=== PATIENT | male | born 1990 | race Caucasian/White ===

== ENCOUNTER 2024-05-24 06:43 | Emergency (ER) | payer MEDICAID, SELFPAY ==
[2024-05-24 06:43] VITALS: BMI 22.2
[2024-05-24 06:50] VITALS: BP 107/69; PULSE 64; RESP 19; TEMP 36.7; O2SAT 98
--- NOTE | 2024-05-24 06:59 | XR_ITS ---
Examination: Abdomen sonogram, Limited Date and time of exam: May 24, 2024 0727 hrs. Indications: Epigastric pain and vomiting beginning today Technique: Real-time alba scale transabdominal sonographic images of the upper abdomen obtained. Findings: 2 cm gallstone Gallbladder sludge Normal gallbladder wall 0.3 cm Common bile duct enlarged 0.6 cm Pancreatic head 1.9 cm Liver 15.6 cm no liver lesions Normal hepatopedal portal venous flow Patent IVC Impression: Cholelithiasis Enlarged common bile duct 0.6 cm, if biliary colic is a clinical consideration, suggest MRCP follow-up
[2024-05-24] MEDS: METOCLOPRAMIDE INJ 5 MG/ML VIAL 2 ML 10 MG IM (07:16)
[2024-05-24] MEDS: MG HYD/AL HYD/SIME (Maalox Reg) SUSP 30 ML UDC PO (07:18)
[2024-05-24] MEDS: LIDOCAINE VISCOUS 2% 15 ML UDC PO (07:19)
--- NOTE | 2024-05-24 07:32 | PD.EDABDPN ---
ED Abdominal Pain RME/HPI General Chief Complaint: Abdominal Pain Stated complaint: EPIGASTRIC PAIN,N/V Time seen by provider: 05/24/24 06:44 Arrival date/time: 05/24/24 06:43 33-year-old male presents emergency department today complaints of intermittent abdominal pain epigastric ongoing for the last couple of years patient currently on medication for acid reflux patient reports he has not followed up with a GI specialist as of yet. Patient reports no chest pain or shortness of breath no headache dizziness or weakness Limitations: no limitations Related Data Previous Rx's ?Medication ?Instructions ?Recorded meloxicam 7.5 mg tablet 7.5 mg PO QDAY #10 tabs 07/10/23 ibuprofen 600 mg tablet 600 mg PO Q8H PRN pain #14 tabs 03/09/24 metoclopramide HCl 10 mg tablet 10 mg PO Q6H PRN nausea and 05/24/24 (Reglan) vomiting #30 tabs Allergies Allergy/AdvReac Type Severity Reaction Status Date / Time No Known Allergies Allergy Verified 05/24/24 06:45 Review of Systems Review of Systems Systems Reviewed: All systems reviewed, normal except as documented Constitutional Constitutional: Reports system reviewed and no additional complaints, except as documented, Denies fever(s) and Denies headache(s) Eyes Eyes: Reports system reviewed and no additional complaints, except as documented and Denies blurry vision ENT Ears, Nose, Mouth, and Throat: Reports system reviewed and no additional complaints, except as documented, Denies headache(s), Denies nasal congestion and Denies nasal discharge Cardiovascular Cardiovascular: Reports system reviewed and no additional complaints, except as documented, Denies chest pain and Denies dyspnea Respiratory Respiratory: Reports system reviewed and no additional complaints, except as documented, Denies chest congestion, Denies cough and Denies dyspnea Gastrointestinal Gastrointestinal: Reports system reviewed and no additional complaints, except as documented, Reports abdominal pain, Reports nausea and Reports vomiting Integumentary/Breasts Skin/Breast: Reports system reviewed and no additional complaints, except as documented and Denies rash Neurologic Neurologic: Reports system reviewed and no additional complaints, except as documented, Reports as per HPI and Denies headache(s) Past Medical History Past Medical History CARDIAC: Negative Congestive Heart Failure RESPIRATORY: Negative Chronic Obstructive Pulmonary Disease (COPD) GENITOURINARY: Negative Renal Disease ENDOCRINE: Negative Diabetes Mellitus Type 1 or Diabetes Mellitus Type 2 Social History SMOKING STATUS: Current every day smoker ED Exam General Limitations: Present no limitations General appearance: Present alert and in no apparent distress Head Head exam: Present atraumatic Eye Eye exam: Present normal appearance, PERRL and EOMI ENT ENT exam: Present normal exam, normal oropharynx and mucous membranes moist Neck Neck exam: Present normal inspection, full ROM and trachea midline Chest Chest inspection: Present normal inspection and symmetric chest wall rise Respiratory Respiratory exam: Present normal lung sounds bilaterally; Absent respiratory distress Cardiovascular Cardiovascular exam: Present regular rate, normal rhythm and normal heart sounds Abdominal Exam Abdominal exam: Present soft, tenderness and normal bowel sounds; Absent distention, guarding, rebound, rigidity, Flood's sign or tenderness at McBurney's Point Abdominal tenderness: Present epigastrium; Absent RUQ or RLQ Extremities Exam Extremities exam: Present normal inspection and full ROM Back Exam Back exam: Present normal inspection and full ROM Neurological Exam Neurological exam: Present alert, oriented X3 and CN II-XII intact Psychiatric Psychiatric exam: Present normal affect and normal mood Skin Skin exam: Present warm, dry, intact and normal color Course Quality Measures none Orders Category Date Time Status US gall bladder Stat Exams 05/24/24 06:59 Completed CBC Stat Lab 05/24/24 07:13 Completed Comprehensive Metabolic Panel Stat Lab 05/24/24 07:13 Completed Lipase Stat Lab 05/24/24 07:13 Completed Lidocaine 2% Viscous [Xylocaine 2% Viscous] Med 05/24/24 06:59 Discontinued 15 ml PO X1 ONE Metoclopramide Inj [Reglan Inj] Med 05/24/24 06:59 Discontinued 10 mg IM X1 ONE mg Hyd/Al Hyd/Jamie Susp [Maalox Susp] Med 05/24/24 06:59 Discontinued 30 ml PO X1 ONE Vital Signs Vital signs: Vital Signs Temperature 98.0 F 05/24/24 06:50 Pulse Rate 64 05/24/24 06:50 Respiratory Rate 19 05/24/24 06:50 Blood Pressure 107/69 05/24/24 06:50 Pulse Oximetry (%) 98 05/24/24 06:50 Oxygen Delivery Method Room Air 05/24/24 06:50 O2 saturation 98% room air within normal limits Abdominal Pain MDM MDM Narrative MDM Narrative:: 33-year-old male presents emergency department today complaints of intermittent abdominal pain epigastric ongoing for the last couple of years patient currently on medication for acid reflux patient reports he has not followed up with a GI specialist as of yet. Patient reports no chest pain or shortness of breath no headache dizziness or weakness On exam patient well-appearing patient is not appear ill or toxic Patient medicated which did improve his symptom Lab work as well as ultrasound obtained Ultrasound consistent with gallstones and cholelithiasis Liver enzymes are normal I do not suspect patient has CBD stone obstruction Discussed findings of ultrasound and lab work with my attending physician Dr Mccray felt patient did not require MRI at this point could be discharged home. As the patient has no elevation liver enzymes negative Flood sign and patient symptoms have improved patient be discharged home I did explain to the patient that if symptoms persist or worsen he should return immediately for further evaluation Patient discharged home in no distress to follow-up with primary care doctor in the next 24 to 48 hours and request evaluation by general surgeon Patient data External records reviewed:: [facility] previous records Clinical information provided by:: patient Social determinants that could affect healthcare access:: none Patient has the following chronic illnesses:: None How is presenting disease/condition affected by chronic disease/condition?: uneffected by Evaluation data The following diagnostics were reviewed and interpreted by me:: lab results and radiology exam(s) Lab and/or radiology exams considered but not ordered:: Labs radiology obtained Interpretation Summary: Reviewed by me Medications / Prescriptions Medications or Prescriptions considered but not ordered:: Given Medication administrations:: Medication Administration History Discontinued Medications Al Hydrox/Mg Hydrox/Simethicone (Mg Hyd/Al Hyd/Jamie (Maalox Reg) Susp 30 Ml Udc) 30 ml PO X1 ONE Stop: 05/24/24 07:00 Last Admin: 05/24/24 07:18 Dose: 30 ml Documented By: ED Lidocaine HCl (Lidocaine Viscous 2% 15 Ml Udc) 15 ml PO X1 ONE Stop: 05/24/24 07:00 Last Admin: 05/24/24 07:19 Dose: 15 ml Documented By: ED Metoclopramide HCl (Metoclopramide Inj 5 Mg/Ml Vial 2 Ml) 10 mg IM X1 ONE; Protocol Stop: 05/24/24 07:00 Last Admin: 05/24/24 07:16 Dose: 10 mg Documented By: ED Given Consultations Consultation(s) initiated? (list below): No Diagnosis Differential diagnosis abdominal pain: abdominal pain, acute appendicitis, gastroenteritis and pancreatitis Most likely diagnosis given after review of the tests above:: Abdominal pain Admission Indicated Admission indicated?: not indicated Admission Request Was there a request for admission?: No Disposition Plan Disposition Plan: Discharge Discharge Attestation Discharge Attestation: The patient and all family members were given an opportunity to ask questions and understood the discharge instructions. Discharge instructions specifically effects, indications for sooner follow up or return to the emergency department, and the expected course of current diagnosis. Patient condition: Stable Discharge Plan Plan Patient Disposition: HOME (Self Care) Disposition Comment: Stable Prescriptions/Referrals Prescriptions/Med Rec: New metoclopramide HCl [Reglan] 10 mg tablet 10 mg PO Q6H PRN (Reason: nausea and vomiting) Qty: 30 0RF No Action ibuprofen 600 mg tablet 600 mg PO Q8H PRN (Reason: pain) Qty: 14 0RF meloxicam 7.5 mg tablet 7.5 mg PO QDAY Qty: 10 0RF Referrals: No Primary/Family,Physician [Primary Care Provider] - 05/25/24 Problem List Clinical Impression: Cholelithiasis Patient/Caregiver Discharge Instructions Education Materials: Treating Gallstones Additional Instructions: Please follow-up primary care doctor and or get a referral to general surgeon for worsening symptoms return immediately Print Language: Yi Stand Alone Forms: Neha Award Info., Work/School Release, Patient Portal Info Letter THIAGO/PAUL Supervising Physician RENETTA Supervising Physician: Dr Mccray
[2024-05-24 07:55] LABS: Basophils % (Auto) 0 % (0-2.5); Eosinophils # (Auto) 0.2 Thou/mm3 (0.0-0.5); Eosinophils % (Auto) 2 % (0-10); Hematocrit 45.1 % (41.0-53.0); Hemoglobin 15.3 g/dL (13.5-16.0); Immature Granulocytes % (Auto) 0 % (0-0); Immature Granulocytes Auto 0.05 Thou/mm3 (0.00-0.00); Lymphocytes # (Auto) 2.4 Thou/mm3 (1.0-4.8); Lymphocytes % (Auto) 19 % (10-50); Mean Corpuscular HGB Conc 33.9 g/dl (31.0-37.0); Mean Corpuscular Volume 88 fL (80-100); Monocytes # (Auto) 0.6 Thou/mm3 (0.0-0.8); Monocytes % (Auto) 5 % (0-12); Neutrophils # (Auto) 9.6 Thou/mm3 (1.8-7.7); Neutrophils % (Auto) 74 % (37-80); Nucleated Red Blood Cell % 0 /100 WBC (0); Platelet Count 265 Thou/mm3 (140-440); RDW Standard Deviation 43.8 fL (35.1-43.9); White Blood Count 12.9 Thou/mm3 (3.8-10.6)
[2024-05-24 08:21] LABS: Alanine Aminotransferase 16 U/L (10-49); Albumin, Serum 4.7 gm/dL (3.5-5.0); Albumin/Globulin Ratio 1.6 (1.2-2.2); Alkaline Phosphatase 89 U/L (46-116); Anion Gap 7 (7-16); Aspartate Amino Transferase 22 U/L (0-34); BUN/Creatinine Ratio 11 Ratio (12-20); Bilirubin,Total 0.4 mg/dL (0.3-1.2); Blood Urea Nitrogen 11 mg/dL (9-23); Calcium 10.6 mg/dL (8.3-10.6); Calcium (Corrected) 10.6 mg/dL (8.5-10.1); Carbon Dioxide 30.9 mMol/L (20.0-31.0); Chloride 102 mMol/L (98-107); Estimated Creatinine Clearance 105.5 mL/min (>60); Glucose 88 mg/dL (74-106); Lipase 58 U/L (12-53); Osmolality,Calculated 277 (275-295); Potassium 3.7 mMol/L (3.4-5.1); Sodium 140 mMol/L (136-145); Total Protein 7.7 gm/dL (5.7-8.2); eGFR > 60 See Note
[2024-05-24 08:51] VITALS: BP 117/77; PULSE 61; RESP 17; TEMP 36.5; O2SAT 99
== END 2024-05-24 08:53 | disposition home or self-care (01) ==
PROVIDERS: Nurse Practitioner Primary Care; Emergency Provider Emergency Medicine
DX: K80.20 Calculus of gallbladder without cholecystitis without obstruction (principal)
CPT/HCPCS: 36415; 76705; 80053; 80307; 81001; 83690; 85025; 96372; 99284; J2765; J3490; A9270

== ENCOUNTER 2024-06-24 19:56 | Emergency (ER) | payer MEDICAID, SELFPAY ==
[2024-06-24 19:58] VITALS: BMI 22.9
--- NOTE | 2024-06-24 20:39 | PD.EDRME ---
Rapid Medical Screening Exam RME Arrival date/time: 06/24/24 19:56 33-year-old male with past medical history of gallstones and everyday marijuana smoker presents emergency department complaining of diffuse abdominal pain with nausea and vomiting for 3 days. Chief Complaint: Abdominal Pain Time Seen by Provider: 06/24/24 20:24 Vital signs reviewed by provider: Yes
[2024-06-24 20:46] VITALS: BP 119/80; PULSE 66; RESP 20; TEMP 36.7; O2SAT 98
[2024-06-24] MEDS: ONDANSETRON ODT 4 MG TABRAP PO (20:53)
[2024-06-24] MEDS: KETOROLAC INJ 60 MG/2 ML VIAL 30 MG IM (20:53)
[2024-06-24 21:23] LABS: Basophils % (Auto) 0 % (0-2.5); Eosinophils # (Auto) 0.2 Thou/mm3 (0.0-0.5); Eosinophils % (Auto) 2 % (0-10); Hematocrit 43.1 % (41.0-53.0); Hemoglobin 14.5 g/dL (13.5-16.0); Immature Granulocytes % (Auto) 0 % (0-0); Immature Granulocytes Auto 0.02 Thou/mm3 (0.00-0.00); Lymphocytes # (Auto) 3.1 Thou/mm3 (1.0-4.8); Lymphocytes % (Auto) 33 % (10-50); Mean Corpuscular HGB Conc 33.6 g/dl (31.0-37.0); Mean Corpuscular Volume 89 fL (80-100); Monocytes # (Auto) 0.5 Thou/mm3 (0.0-0.8); Monocytes % (Auto) 6 % (0-12); Neutrophils # (Auto) 5.4 Thou/mm3 (1.8-7.7); Neutrophils % (Auto) 59 % (37-80); Nucleated Red Blood Cell % 0 /100 WBC (0); Platelet Count 212 Thou/mm3 (140-440); Red Blood Count 4.83 Miln/mm3 (4.50-5.90); White Blood Count 9.2 Thou/mm3 (3.8-10.6)
[2024-06-24 21:41] LABS: Alanine Aminotransferase 15 U/L (10-49); Albumin, Serum 4.8 gm/dL (3.5-5.0); Albumin/Globulin Ratio 1.7 (1.2-2.2); Alkaline Phosphatase 75 U/L (46-116); Anion Gap 6 (7-16); Aspartate Amino Transferase 22 U/L (0-34); BUN/Creatinine Ratio 12 Ratio (12-20); Bilirubin,Total 0.4 mg/dL (0.3-1.2); Blood Urea Nitrogen 11 mg/dL (9-23); Calcium 9.6 mg/dL (8.3-10.6); Calcium (Corrected) 9.6 mg/dL (8.5-10.1); Carbon Dioxide 29.9 mMol/L (20.0-31.0); Chloride 104 mMol/L (98-107); Creatinine (Component) 0.9 mg/dL (0.6-1.3); Globulin 2.8 gm/dL (2.3-3.5); Glucose 92 mg/dL (74-106); Lipase 62 U/L (12-53); Osmolality,Calculated 278 (275-295); Potassium 3.9 mMol/L (3.4-5.1); Sodium 140 mMol/L (136-145); Total Protein 7.6 gm/dL (5.7-8.2); eGFR > 60 See Note
[2024-06-24 21:56] LABS: Collection Type, Urine Clean Catch; Squamous Epithelial Cell,Urine 0 /hpf (0-5)
[2024-06-24 22:10] LABS: Bilirubin,Urine Negative (Negative); Blood,Urine Negative (Negative); Clarity,Urine Clear (Clear/Hazy); Color,Urine Yellow (Lt Yel-Yel); Culture Indicated,Urine Not Indicated; Glucose, Urine Negative (Negative); Ketones,Urine Trace (Negative); Leukocyte Esterase,Urine Positive (Negative); Nitrite,Urine Negative (Negative); Protein,Urine 1+ (Neg - Trace); RBC,Urine 3 /hpf (0-3); Specific Gravity,Urine 1.034 (1.001-1.035); WBC,Urine 1 /hpf (0-5)
[2024-06-24 22:22] LABS: Amphetamine/Methamp Scrn,U Negative (Negative); Barbiturate Screen,Urine Negative (Negative); Benzodiazepines Screen,Urine Negative (Negative); Benzoylecgonine Screen, Ur Negative (Negative); Fentanyl Screen,Urine Negative (Negative); Opiate Screen,Urine Negative (Negative); THC Screen,Urine Positive (Negative)
--- NOTE | 2024-06-24 23:24 | PC.NURSE ---
pt did not answer when name was called and was not found outside.
--- NOTE | 2024-06-24 23:40 | PC.NURSE ---
pt did not answer when name was called and was not found outside.
== END 2024-06-24 23:45 | disposition left against medical advice (07) ==
PROVIDERS: Emergency Provider Emergency Medicine; PCP Family Medicine
DX: R10.84 Generalized abdominal pain (principal); R11.2 Nausea with vomiting, unspecified
CPT/HCPCS: 36415; 80053; 80307; 81001; 83690; 85025; 96372; 99281; J1885; Q0162

== ENCOUNTER 2024-06-26 06:10 | Emergency (ER) | payer MEDICAID, SELFPAY ==
[2024-06-26 06:10] VITALS: BMI 22.9
[2024-06-26 06:16] VITALS: BP 113/78; PULSE 65; RESP 16; TEMP 36.7; O2SAT 98
--- NOTE | 2024-06-26 06:31 | XR_ITS ---
Examination: Abdomen sonogram, Limited Date and time of exam: June 26, 2024 0722 hours INDICATIONS: Epigastric pain and vomiting beginning yesterday Technique: Real-time alba scale transabdominal sonographic images of the upper abdomen obtained. Findings: Gallbladder sludge 18 mm gallstone Gallbladder wall 0.3 cm no edema Common bile duct 0.4 cm no stones Pancreatic head 2.2 cm Liver 16.4 cm fatty infiltration no focal liver lesions Normal hepatopedal portal venous flow Patent IVC IMPRESSION: Cholelithiasis, negative for cholecystitis Normal common bile duct Mild hepatomegaly fatty liver
--- NOTE | 2024-06-26 06:32 | EDNOTE_ITS ---
ED Abdominal Pain RME/HPI General Chief Complaint: Abdominal Pain Stated complaint: GALLBLADDER PAIN Time seen by provider: 06/26/24 06:32 Arrival date/time: 06/26/24 06:10 33-year-old male with no known medical history presents to the emergency room with a chief complaint of 8 out of 10 epigastric pain that radiates to the right upper quadrant. Patient states he has a history of gallstones and states the pain is very similar. Source: patient Mode of arrival: ambulatory Limitations: no limitations Related Data Previous Rx's ?Medication ?Instructions ?Recorded meloxicam 7.5 mg tablet 7.5 mg PO QDAY #10 tabs 07/10/23 ibuprofen 600 mg tablet 600 mg PO Q8H PRN pain #14 tabs 03/09/24 metoclopramide HCl 10 mg tablet 10 mg PO Q6H PRN nausea and 05/24/24 (Reglan) vomiting #30 tabs Allergies Allergy/AdvReac Type Severity Reaction Status Date / Time No Known Allergies Allergy Verified 06/26/24 06:12 Review of Systems Review of Systems Systems Reviewed: All systems reviewed, normal except as documented Constitutional Constitutional: Reports system reviewed and no additional complaints, except as documented, Denies fatigue, Denies fever(s), Denies headache(s) and Denies weakness Eyes Eyes: Reports system reviewed and no additional complaints, except as documented, Denies blurry vision and Denies change in vision ENT Ears, Nose, Mouth, and Throat: Reports system reviewed and no additional complaints, except as documented, Denies otalgia, Denies headache(s), Denies nasal congestion, Denies throat swelling and Denies vertigo Cardiovascular Cardiovascular: Reports system reviewed and no additional complaints, except as documented, Denies chest pain, Denies dyspnea and Denies dyspnea on exertion Respiratory Respiratory: Reports system reviewed and no additional complaints, except as documented, Denies chest congestion, Denies cough, Denies dyspnea, Denies dyspnea on exertion and Denies wheezing Gastrointestinal Gastrointestinal: Reports system reviewed and no additional complaints, except as documented, Reports abdominal pain, Reports cramping, Reports dyspepsia, Reports nausea and Reports vomiting Genitourinary Genitourinary: Reports system reviewed and no additional complaints, except as documented, Denies dysuria and Denies hematuria Musculoskeletal Musculoskeletal: Reports system reviewed and no additional complaints, except as documented and Denies back pain Integumentary/Breasts Skin/Breast: Reports system reviewed and no additional complaints, except as documented and Denies wounds Neurologic Neurologic: Reports system reviewed and no additional complaints, except as documented, Denies confusion, Denies headache(s), Denies lack of coordination, Denies vertigo and Denies weakness Psychiatric Psychiatric: Reports system reviewed and no additional complaints, except as documented, Denies anxiety, Denies confusion, Denies depression, Denies paranoia, Denies suicidal ideation and Denies tactile hallucinations Endocrine Endocrine: Reports system reviewed and no additional complaints, except as documented and Denies fatigue Hematologic/Lymphatic Hematologic/Lymphatic: Reports system reviewed and no additional complaints, except as documented and Denies lymphadenopathy Allergic/Immunologic Allergic/Immunologic: Reports system reviewed and no additional complaints, except as documented, Denies throat swelling, Denies urticaria and Denies wheezing Past Medical History Past Medical History CARDIAC: Negative Congestive Heart Failure RESPIRATORY: Negative Chronic Obstructive Pulmonary Disease (COPD) GENITOURINARY: Negative Renal Disease ENDOCRINE: Negative Diabetes Mellitus Type 1 or Diabetes Mellitus Type 2 Social History SMOKING STATUS: Current every day smoker ED Exam General Limitations: Present no limitations General appearance: Present alert and in no apparent distress Head Head exam: Present atraumatic Eye Eye exam: Present normal appearance, PERRL and EOMI ENT ENT exam: Present normal exam, normal oropharynx and mucous membranes moist Neck Neck exam: Present normal inspection, full ROM and trachea midline Chest Chest inspection: Present normal inspection and symmetric chest wall rise Respiratory Respiratory exam: Present normal lung sounds bilaterally Cardiovascular Cardiovascular exam: Present regular rate, normal rhythm and normal heart sounds Abdominal Exam Abdominal exam: Present soft, tenderness, normal bowel sounds and Flood's sign; Absent Rovsing's sign or tenderness at McBurney's Point Abdominal tenderness: Present RUQ, epigastrium and moderate Extremities Exam Extremities exam: Present normal inspection and full ROM Back Exam Back exam: Present normal inspection and full ROM Neurological Exam Neurological exam: Present alert, oriented X3 and CN II-XII intact Psychiatric Psychiatric exam: Present normal affect and normal mood Skin Skin exam: Present warm, dry, intact and normal color Course Quality Measures none Orders Category Date Time Status US gall bladder Stat Exams 06/26/24 06:31 Completed CBC Stat Lab 06/26/24 07:38 Completed CMP [Comprehensive Metabolic Panel] Stat Lab 06/26/24 07:38 Completed Lipase Stat Lab 06/26/24 07:38 Completed UA [Urinalysis] Stat Lab 06/26/24 08:20 Completed Urine Culture Stat Lab 06/26/24 08:20 Received HYDROcodone*/APAP 5/325 [[place] 5/325] Med 06/26/24 06:31 Discontinued 1 tab PO X1 ONE Ondansetron Odt [Zofran Odt] Med 06/26/24 06:31 Discontinued 4 mg PO X1 ONE Ondansetron Odt [Zofran Odt] Med 06/26/24 06:37 Discontinued 4 mg PO X1 ONE Vital Signs Vital signs: Vital Signs Temperature 98.0 F 06/26/24 06:16 Pulse Rate 65 06/26/24 06:16 Respiratory Rate 16 06/26/24 06:16 Blood Pressure 113/78 06/26/24 06:16 Pulse Oximetry (%) 98 06/26/24 06:16 Oxygen Delivery Method Room Air 06/26/24 06:16 O2 saturation 98% within normal limits Abdominal Pain MDM MDM Narrative MDM Narrative:: 33-year-old male with no known medical history presents to the emergency room with a chief complaint of 8 out of 10 epigastric pain that radiates to the right upper quadrant. Patient states he has a history of gallstones and states the pain is very similar. Clinically the patient appears nontoxic and in no apparent distress. Physical examination shows 8 out of 10 epigastric pain that radiates to the right upper quadrant. Patient has a negative Flood sign but is very tender in the epigastric area. Ultrasound of the gallbladder was completed and shows cholelithiasis but is negative for cholecystitis. Patient signed out AGAINST MEDICAL ADVICE prior to disposition the patient was not seen and reevaluated Patient data External records reviewed:: [facility] previous records Clinical information provided by:: patient Social determinants that could affect healthcare access:: none Patient has the following chronic illnesses:: No chronic illness How is presenting disease/condition affected by chronic disease/condition?: no chronic disease Evaluation data The following diagnostics were reviewed and interpreted by me:: lab results and radiology exam(s) Lab and/or radiology exams considered but not ordered:: Labs and radiology exams considered and ordered Interpretation Summary: Ultrasound gallbladder- Medications / Prescriptions Medications or Prescriptions considered but not ordered:: Medication given Medication administrations:: Medication Administration History Discontinued Medications Hydrocodone Bitart/Acetaminophen (Hydrocodone/Apap 5/325 Tablet) 1 tab PO X1 ONE Stop: 06/26/24 06:32 Last Admin: 06/26/24 06:40 Dose: 1 tab Documented By: ARTURO Ondansetron HCl (Ondansetron Odt 4 Mg Tabrap) 4 mg PO X1 ONE; Protocol Stop: 06/26/24 06:32 Last Admin: 06/26/24 06:38 Dose: Not Given Documented By: ARTURO Non-Admin Reason: Discontinued Ondansetron HCl (Ondansetron Odt 4 Mg Tabrap) 4 mg PO X1 ONE; Protocol Stop: 06/26/24 06:38 Last Admin: 06/26/24 06:40 Dose: 4 mg Documented By: ARTURO Medication given Consultations Consultation(s) initiated? (list below): No Diagnosis Differential diagnosis abdominal pain: abdominal pain, constipation, gastroenteritis and other (Cholecystitis/cholecystectomy) Most likely diagnosis given after review of the tests above:: Cholelithiasis Admission Indicated Admission indicated?: not indicated Admission Request Was there a request for admission?: No Disposition Plan Disposition Plan: Discharge Discharge Attestation Discharge Attestation: The patient and all family members were given an opportunity to ask questions and understood the discharge instructions. Discharge instructions specifically effects, indications for sooner follow up or return to the emergency department, and the expected course of current diagnosis. Patient condition: Stable Discharge Plan Plan Patient Disposition: Left Against Medical Advice Disposition Comment: Stable Prescriptions/Referrals Prescriptions/Med Rec: No Action ibuprofen 600 mg tablet 600 mg PO Q8H PRN (Reason: pain) Qty: 14 0RF meloxicam 7.5 mg tablet 7.5 mg PO QDAY Qty: 10 0RF metoclopramide HCl [Reglan] 10 mg tablet 10 mg PO Q6H PRN (Reason: nausea and vomiting) Qty: 30 0RF Referrals: Flor Wise TECHNICAL SUPPORT PROFESSIONAL [Primary Care Provider] - In 1 week Problem List Clinical Impression: Cholelithiasis Patient/Caregiver Discharge Instructions Education Materials: ED Gallstones with Biliary Colic Print Language: Cymro Stand Alone Forms: Neha Award Info., Patient Portal Info Letter
[2024-06-26] MEDS: HYDROcodone/APAP 5/325 TABLET 1 TAB PO (06:40)
[2024-06-26] MEDS: ONDANSETRON ODT 4 MG TABRAP PO (06:40)
[2024-06-26 08:49] LABS: Collection Type, Urine Clean Catch
[2024-06-26 09:49] LABS: Bacteria,Urine Rare; Bilirubin,Urine Negative (Negative); Blood,Urine Negative (Negative); Clarity,Urine Clear (Clear/Hazy); Color,Urine Lt-Yellow (Lt Yel-Yel); Glucose, Urine Negative (Negative); Ketones,Urine Negative (Negative); Leukocyte Esterase,Urine Negative (Negative); Nitrite,Urine Negative (Negative); PH,Urine 6.5 (5.0-7.0); Protein,Urine Trace (Neg - Trace); RBC,Urine 2 /hpf (0-3); Specific Gravity,Urine 1.025 (1.001-1.035); Squamous Epithelial Cell,Urine < 1 /hpf (0-5); Urobilinogen,Urine Negative mg/dL (0.0-1.0); WBC,Urine 1 /hpf (0-5)
--- NOTE | 2024-06-26 09:49 | PC.NURSE ---
Patient signed out AMA states i have to take my son to a Dr's appointment at 1030 , patient made aware of risks involved with signing out AMA including possible , patient verbalizes understanding, AMA form signed and placed on chart.
[2024-06-26 10:04] LABS: Basophils % (Auto) 0 % (0-2.5); Eosinophils # (Auto) 0.1 Thou/mm3 (0.0-0.5); Eosinophils % (Auto) 1 % (0-10); Hematocrit 42.8 % (41.0-53.0); Hemoglobin 14.4 g/dL (13.5-16.0); Immature Granulocytes % (Auto) 0 % (0-0); Immature Granulocytes Auto 0.03 Thou/mm3 (0.00-0.00); Lymphocytes % (Auto) 17 % (10-50); Mean Corpuscular HGB Conc 33.6 g/dl (31.0-37.0); Mean Corpuscular Volume 89 fL (80-100); Monocytes # (Auto) 0.6 Thou/mm3 (0.0-0.8); Monocytes % (Auto) 5 % (0-12); Neutrophils # (Auto) 9.1 Thou/mm3 (1.8-7.7); Neutrophils % (Auto) 77 % (37-80); Nucleated Red Blood Cell % 0 /100 WBC (0); Platelet Count 225 Thou/mm3 (140-440); RDW Standard Deviation 44.1 fL (35.1-43.9); White Blood Count 11.8 Thou/mm3 (3.8-10.6)
[2024-06-26 10:24] LABS: Alanine Aminotransferase 14 U/L (10-49); Alkaline Phosphatase 74 U/L (46-116); Anion Gap 6 (7-16); Aspartate Amino Transferase 22 U/L (0-34); BUN/Creatinine Ratio 13 Ratio (12-20); Bilirubin,Total 0.4 mg/dL (0.3-1.2); Blood Urea Nitrogen 12 mg/dL (9-23); Calcium 9.8 mg/dL (8.3-10.6); Calcium (Corrected) 9.8 mg/dL (8.5-10.1); Carbon Dioxide 30.1 mMol/L (20.0-31.0); Chloride 105 mMol/L (98-107); Creatinine (Component) 0.9 mg/dL (0.6-1.3); Globulin 2.5 gm/dL (2.3-3.5); Glucose 91 mg/dL (74-106); Lipase 44 U/L (12-53); Osmolality,Calculated 280 (275-295); Potassium 3.7 mMol/L (3.4-5.1); Sodium 141 mMol/L (136-145); Total Protein 7.5 gm/dL (5.7-8.2); eGFR > 60 See Note
== END 2024-06-26 09:49 | disposition left against medical advice (07) ==
PROVIDERS: Nurse Practitioner Family; Emergency Provider Emergency Medicine; PCP Nurse Practitioner Women's Health
DX: K80.70 Calculus of gallbladder and bile duct without cholecystitis without obstruction (principal); Z53.29 Procedure and treatment not carried out because of patient's decision for other reasons
CPT/HCPCS: 36415; 76705; 80053; 81001; 83690; 85025; 87077; 87086; 87186; 99284; Q0162; A9270

== ENCOUNTER 2024-07-07 00:42 | Emergency (ER) | payer MEDICAID, SELFPAY ==
[2024-07-07 00:43] VITALS: BMI 22.9
--- NOTE | 2024-07-07 00:54 | XR_ITS ---
Examination: Abdomen sonogram, Limited Date and time of exam: July 07, 2024 at 0257 hrs. Indications: Onset right upper abdominal pain beginning 3 days ago Technique: Real-time alba scale transabdominal sonographic images of the upper abdomen obtained. Findings: Findings most consistent with cholelithiasis, with gallbladder sludge Gallbladder wall 0.2 cm Common bile duct 0.3 cm Pancreatic head 1.8 cm Liver 15.0 cm smooth contour no focal liver lesions Normal hepatopedal portal venous flow Patent IVC Impression: Cholelithiasis, negative for cholecystitis
[2024-07-07 01:01] VITALS: BP 108/66; PULSE 104; RESP 20; TEMP 36.7; O2SAT 100
[2024-07-07] MEDS: HYDROcodone/APAP 5/325 TABLET 1 TAB PO (01:06)
[2024-07-07] MEDS: ONDANSETRON ODT 4 MG TABRAP PO (01:06)
[2024-07-07 01:32] LABS: Eosinophils # (Auto) 0.1 Thou/mm3 (0.0-0.5); Eosinophils % (Auto) 1 % (0-10); Immature Granulocytes % (Auto) 0 % (0-0); Immature Granulocytes Auto 0.02 Thou/mm3 (0.00-0.00); Mean Corpuscular HGB Conc 34.3 g/dl (31.0-37.0); Nucleated Red Blood Cell % 0 /100 WBC (0)
[2024-07-07 01:36] LABS: Basophils # (Auto) 0.1 Thou/mm3 (0.0-0.2); Basophils % (Auto) 1 % (0-2.5); Hematocrit 43.5 % (41.0-53.0); Hemoglobin 14.9 g/dL (13.5-16.0); Lymphocytes # (Auto) 3.2 Thou/mm3 (1.0-4.8); Lymphocytes % (Auto) 31 % (10-50); Mean Corpuscular Hemoglobin 29.8 pg (25.0-35.0); Mean Corpuscular Volume 87 fL (80-100); Monocytes # (Auto) 0.5 Thou/mm3 (0.0-0.8); Monocytes % (Auto) 5 % (0-12); Neutrophils # (Auto) 6.2 Thou/mm3 (1.8-7.7); Neutrophils % (Auto) 61 % (37-80); Platelet Count 252 Thou/mm3 (140-440); White Blood Count 10.1 Thou/mm3 (3.8-10.6)
--- NOTE | 2024-07-07 01:39 | EDRME_ITS ---
Rapid Medical Screening Exam [facility] Arrival date/time: 07/07/24 00:42 33-year-old male with no known medical history presents to the emergency room with a chief complaint of 9 out of 10 right upper quadrant abdominal pain that radiates to the epigastric area, nausea, vomiting x 3 hours. Patient states he has been told he has multiple gallstones and has an appointment with the specialist early next month. I have greeted and performed a focused initial assessment of this patient. A comprehensive ED assessment and evaluation of the patient, analysis of all test results, and completion of the medical decision making process will be conducted by additional ED providers. Chief Complaint: Abdominal Pain Vital signs: Vital Signs Temperature 98.0 F 07/07/24 01:01 Pulse Rate 104 H 07/07/24 01:01 Respiratory Rate 20 07/07/24 01:01 Blood Pressure 108/66 07/07/24 01:01 Pulse Oximetry (%) 100 07/07/24 01:01 Oxygen Delivery Method Room Air 07/07/24 01:01 Vital signs reviewed by provider: Yes
[2024-07-07 01:48] LABS: Alanine Aminotransferase 17 U/L (10-49); Albumin/Globulin Ratio 1.9 (1.2-2.2); Alkaline Phosphatase 80 U/L (46-116); Anion Gap 8 (7-16); Aspartate Amino Transferase 20 U/L (0-34); BUN/Creatinine Ratio 14 Ratio (12-20); Bilirubin,Total 0.4 mg/dL (0.3-1.2); Blood Urea Nitrogen 13 mg/dL (9-23); Calcium 10.2 mg/dL (8.3-10.6); Calcium (Corrected) 10.2 mg/dL (8.5-10.1); Chloride 103 mMol/L (98-107); Creatinine (Component) 0.9 mg/dL (0.6-1.3); Globulin 2.7 gm/dL (2.3-3.5); Glucose 91 mg/dL (74-106); Lipase 101 U/L (12-53); Osmolality,Calculated 283 (275-295); Potassium 4.1 mMol/L (3.4-5.1); Sodium 142 mMol/L (136-145); Total Protein 7.7 gm/dL (5.7-8.2); eGFR > 60 See Note
[2024-07-07 03:50] LABS: Collection Type, Urine Clean Catch
[2024-07-07 04:01] LABS: Bacteria,Urine Rare; Bilirubin,Urine Negative (Negative); Blood,Urine Negative (Negative); Clarity,Urine Turbid (Clear/Hazy); Color,Urine Yellow (Lt Yel-Yel); Glucose, Urine Negative (Negative); Ketones,Urine Trace (Negative); Leukocyte Esterase,Urine Negative (Negative); Nitrite,Urine Negative (Negative); PH,Urine 7.5 (5.0-7.0); Protein,Urine 1+ (Neg - Trace); RBC,Urine 4 /hpf (0-3); Specific Gravity,Urine 1.037 (1.001-1.035); Squamous Epithelial Cell,Urine 1 /hpf (0-5); WBC,Urine 2 /hpf (0-5)
[2024-07-07 05:02] VITALS: BP 101/75; PULSE 52; RESP 14; TEMP 36.4; O2SAT 100
--- NOTE | 2024-07-07 05:02 | PC.NURSE ---
First contact with pt in Room 8, pt changed into gown, connected to bedside hospital monitor, whiteboard updated, call light within reach.
--- NOTE | 2024-07-07 05:05 | PRELIM_ITS ---
Right upper quadrant abdominal ultrasound. July 07, 2024 at 0257 hours Clinical history: Right upp er quadrant pain. Comparison: None.Findings:The liver measures 15 cm and demonstrates increased echog enicity. No intrahepatic biliary ductal dilatation. The main portal vein is patent and demonstrates h epatopetal flow. There is a 2 cm large calculus within the gallbladder. Echogenic material is identif ied in the gallbladder, which may represent sludge ball. No wall thickening or pericholecystic fluid is demonstrated. Sonographic Flood sign is positive as per the technologist's note. The common bile duct is normal in caliber at 3 mm. The pancreas is unremarkable to the extent visualized. The inferio r vena cava is unremarkable to the extent visualized. Impression:Cholelithiasis with positive Flood sign. While additional sonographic evidence of gallbladder wall thickening or pericholecystic fluid i s not demonstrated at this time. In the appropriate clinical setting, acute cholecystitis cannot be e ntirely excluded. Suggest follow-up with HIDA scan, if clinically indicated. Fatty infiltration of the liver. Report Electronically Signed By: Jessica Joseph 07/07/2024 5:05:10 AM [EST]
[2024-07-07 06:30] VITALS: BP 99/63; PULSE 53; RESP 14; TEMP 36.8; O2SAT 99
--- NOTE | 2024-07-07 06:42 | EDNOTE_ITS ---
<Statement entered by Sherita Gil MD - 07/07/24 09:15> As co-signing physician, I was present and available for consult prn. I concur with the plan and care as documented by the midlevel provider. ED Abdominal Pain RME/HPI General Chief Complaint: Abdominal Pain Stated complaint: RIGHT UPPER ABDOMINAL PAIN, HX GALLSTONES Time seen by provider: 07/07/24 06:41 Arrival date/time: 07/07/24 00:42 33-year-old male presents emergency department today complaints of intermittent abdominal pain epigastric ongoing for the last couple of years patient currently on medication for acid reflux patient reports he has followed up with GI specialist since last visit reports he has a follow-up appointment on the of next month. Patient reports no chest pain or shortness of breath no headache dizziness or weakness Limitations: no limitations RME / HPI RME / HPI narrative: 07/07/24 00:42 33-year-old male with no known medical history presents to the emergency room with a chief complaint of 9 out of 10 right upper quadrant abdominal pain that radiates to the epigastric area, nausea, vomiting x 3 hours. Patient states he has been told he has multiple gallstones and has an appointment with the specialist early next month. I have greeted and performed a focused initial assessment of this patient. A comprehensive ED assessment and evaluation of the patient, analysis of all test results, and completion of the medical decision making process will be conducted by additional ED providers. Related Data Previous Rx's ?Medication ?Instructions ?Recorded meloxicam 7.5 mg tablet 7.5 mg PO QDAY #10 tabs 07/10/23 ibuprofen 600 mg tablet 600 mg PO Q8H PRN pain #14 tabs 03/09/24 metoclopramide HCl 10 mg tablet 10 mg PO Q6H PRN nausea and 05/24/24 (Reglan) vomiting #30 tabs hydrocodone 5 mg-acetaminophen 325 1 tab PO BID PRN pain #10 tabs 07/07/24 mg tablet ibuprofen 600 mg tablet 600 mg PO Q6H #30 tabs 07/07/24 ondansetron 4 mg disintegrating 4 mg PO Q8H PRN nausea and 07/07/24 tablet vomiting #10 tabs Allergies Allergy/AdvReac Type Severity Reaction Status Date / Time No Known Allergies Allergy Verified 06/26/24 06:12 Review of Systems Review of Systems Systems Reviewed: All systems reviewed, normal except as documented Constitutional Constitutional: Reports system reviewed and no additional complaints, except as documented, Denies fever(s) and Denies headache(s) Eyes Eyes: Reports system reviewed and no additional complaints, except as documented and Denies blurry vision ENT Ears, Nose, Mouth, and Throat: Reports system reviewed and no additional complaints, except as documented, Denies headache(s), Denies nasal congestion and Denies nasal discharge Cardiovascular Cardiovascular: Reports system reviewed and no additional complaints, except as documented, Denies chest pain and Denies dyspnea Respiratory Respiratory: Reports system reviewed and no additional complaints, except as documented, Denies chest congestion, Denies cough and Denies dyspnea Gastrointestinal Gastrointestinal: Reports system reviewed and no additional complaints, except as documented, Reports abdominal pain, Reports nausea and Reports vomiting Integumentary/Breasts Skin/Breast: Reports system reviewed and no additional complaints, except as d ocumented and Denies rash Neurologic Neurologic: Reports system reviewed and no additional complaints, except as documented, Reports as per HPI and Denies headache(s) Past Medical History Past Medical History NEUROLOGIC: Negative Neurological Disorders CARDIAC: Negative Cardiac Disorders ED Exam General Limitations: Present no limitations General appearance: Present alert and in no apparent distress Head Head exam: Present atraumatic, normocephalic and normal inspection Eye Eye exam: Present normal appearance, PERRL and EOMI; Absent conjunctival injection ENT ENT exam: Present normal exam, normal oropharynx and mucous membranes moist Neck Neck exam: Present normal inspection, full ROM and trachea midline Chest Chest inspection: Present normal inspection and symmetric chest wall rise Respiratory Respiratory exam: Present normal lung sounds bilaterally; Absent respiratory distress Cardiovascular Cardiovascular exam: Present regular rate, normal rhythm and normal heart sounds Abdominal Exam Abdominal exam: Present soft and normal bowel sounds; Absent distention, tenderness, guarding, rebound or rigidity Extremities Exam Extremities exam: Present normal inspection and full ROM Back Exam Back exam: Present normal inspection and full ROM Neurological Exam Neurological exam: Present alert, oriented X3 and CN II-XII intact Psychiatric Psychiatric exam: Present normal affect and normal mood Skin Skin exam: Present warm, dry, intact and normal color Course Quality Measures none Orders Category Date Time Status US gall bladder Stat Exams 07/07/24 00:54 Taken CBC Stat Lab 07/07/24 01:16 Completed CMP [Comprehensive Metabolic Panel] Stat Lab 07/07/24 01:16 Completed Lipase Stat Lab 07/07/24 01:16 Completed UA [Urinalysis] Stat Lab 07/07/24 03:44 Completed Urine Culture Stat Lab 07/07/24 03:44 Ordered HYDROcodone*/APAP 5/325 [[place] 5/325] Med 07/07/24 00:54 Discontinued 1 tab PO X1 ONE Ondansetron Odt [Zofran Odt] Med 07/07/24 00:54 Discontinued 4 mg PO X1 ONE Vital Signs Vital signs: Vital Signs Temperature 98.0 F 07/07/24 01:01 Pulse Rate 104 H 07/07/24 01:01 Respiratory Rate 20 07/07/24 01:01 Blood Pressure 108/66 07/07/24 01:01 Pulse Oximetry (%) 100 07/07/24 01:01 Oxygen Delivery Method Room Air 07/07/24 01:01 O2 saturation 100% room air within normal limits Abdominal Pain MDM MDM Narrative MDM Narrative:: 33-year-old male presents emergency department today complaints of intermittent abdominal pain epigastric ongoing for the last couple of years patient currently on medication for acid reflux patient reports he has followed up with GI spe cialist since last visit reports he has a follow-up appointment on the 12th of next month. Patient reports no chest pain or shortness of breath no headache dizziness or weakness On exam patient well-appearing patient is not appear ill or toxic Patient medicated which did improve his symptom Lab work as well as ultrasound obtained Ultrasound consistent with gallstones and cholelithiasis Liver enzymes are normal I do not suspect patient has CBD stone obstruction As the patient has no elevation liver enzymes negative Flood sign and patient symptoms have improved patient be discharged home I did explain to the patient that if symptoms persist or worsen he should return immediately for further evaluation cholelithiasis Patient discharged home in no distress to follow-up with primary care doctor in the next 24 to 48 hours and request evaluation by general surgeon Patient data External records reviewed:: [facility] previous records Clinical information provided by:: patient Social determinants that could affect healthcare access:: none Patient has the following chronic illnesses:: None How is presenting disease/condition affected by chronic disease/condition?: no chronic disease Evaluation data The following diagnostics were reviewed and interpreted by me:: lab results and radiology exam(s) Lab and/or radiology exams considered but not ordered:: Labs radiology obtain Interpretation Summary: Reviewed by me Medications / Prescriptions Medications or Prescriptions considered but not ordered:: Given Medication administrations:: Medication Administration History Discontinued Medications Hydrocodone Bitart/Acetaminophen (Hydrocodone/Apap 5/325 Tablet) 1 tab PO X1 ONE Stop: 07/07/24 00:55 Last Admin: 07/07/24 01:06 Dose: 1 tab Documented By: STEPHEN Ondansetron HCl (Ondansetron Odt 4 Mg Tabrap) 4 mg PO X1 ONE; Protocol Stop: 07/07/24 00:55 Last Admin: 07/07/24 01:06 Dose: 4 mg Documented By: STEPHEN Given Consultations Consultation(s) initiated? (list below): No Diagnosis Differential diagnosis abdominal pain: abdominal pain, acute appendicitis, gastroenteritis and pancreatitis Most likely diagnosis given after review of the tests above:: Gallstones Admission Indicated Admission indicated?: not indicated Admission Request Was there a request for admission?: No Disposition Plan Disposition Plan: Discharge Discharge Attestation Discharge Attestation: The patient and all family members were given an opportunity to ask questions and understood the discharge instructions. Discharge instructions specifically effects, indications for sooner follow up or return to the emergency department, and the expected course of current diagnosis. Patient condition: Stable Discharge Plan Plan Patient Disposition: HOME (Self Care) Disposition Comment: Stable Prescriptions/Referrals Prescriptions/Med Rec: New hydrocodone-acetaminophen 5-325 mg tablet 1 tab PO BID MDD 10 PRN (Reason: pain) Qty: 10 0RF ibuprofen 600 mg tablet 600 mg PO Q6H Qty: 30 0RF ondansetron 4 mg tablet,disintegrating 4 mg PO Q8H PRN (Reason: nausea and vomiting) Qty: 10 0RF No Action ibuprofen 600 mg tablet 600 mg PO Q8H PRN (Reason: pain) Qty: 14 0RF meloxicam 7.5 mg tablet 7.5 mg PO QDAY Qty: 10 0RF metoclopramide HCl [Reglan] 10 mg tablet 10 mg PO Q6H PRN (Reason: nausea and vomiting) Qty: 30 0RF Referrals: No Primary/Family,Physician [Primary Care Provider] - In 1 week Problem List Clinical Impression: Cholelithiasis Patient/Caregiver Discharge Instructions Education Materials: Treating Gallstones Additional Instructions: Please follow up with your primary care doctor in the next 24-48hrs for any worsening symptoms return here immediately Print Language: Dominican Stand Alone Forms: Neha Award Info., Patient Portal Info Letter PA/DEVELOPMENT TECHNICIAN Supervising Physician PA/DEVELOPMENT TECHNICIAN Supervising Physician: Dr. GIL
[2024-07-07 06:47] VITALS: BP 99/63; PULSE 53; RESP 14; TEMP 36.8; O2SAT 99
== END 2024-07-07 06:47 | disposition home or self-care (01) ==
PROVIDERS: Nurse Practitioner Family; Emergency Provider Emergency Medicine
DX: K80.20 Calculus of gallbladder without cholecystitis without obstruction (principal); K21.9 Gastro-esophageal reflux disease without esophagitis
CPT/HCPCS: 36415; 76705; 80053; 81001; 83690; 85025; 87077; 87086; 87186; 99284; Q0162; A9270

== ENCOUNTER 2024-07-18 02:01 | Emergency (ER) | payer MEDICAID, SELFPAY ==
[2024-07-18 02:02] VITALS: BMI 22.2
[2024-07-18 02:12] VITALS: BP 108/71; PULSE 62; RESP 19; TEMP 36.4; O2SAT 98
--- NOTE | 2024-07-18 02:23 | EDNOTE_ITS ---
ED Abdominal Pain RME/HPI General Chief Complaint: Abdominal Pain Stated complaint: RIGHT UPPER ABDOMINAL PAIN Time seen by provider: 07/18/24 02:18 Arrival date/time: 07/18/24 02:01 33M with history of anxiety and gallstones presents to ED with 2 months of on/off RUQ pain. Patient has been here multiple times for this with US showing gallstones, but no cholecystitis. Patient has specialist appointment next month. Patient just wants meds and declines diagnostic work. Patient hasn't taken any meds because he recently lost his job and can't afford them. Limitations: no limitations Related Data Previous Rx's ?Medication ?Instructions ?Recorded meloxicam 7.5 mg tablet 7.5 mg PO QDAY #10 tabs 06/21 07/13 ibuprofen 600 mg tablet 600 mg PO Q8H PRN pain #14 t abs 03/09/24 metoclopramide HCl 10 mg tablet 10 mg PO Q6H PRN nause a and 05/24/24 (Reglan) vomiting #30 tabs hydrocodone 5 mg-acetaminophen 325 1 tab PO BID PRN pa in #10 tabs 07/07/24 mg tablet ibuprofen 600 mg tablet 600 mg PO Q6H #30 tabs 07/07 ondansetron 4 mg disintegrating 4 mg PO Q8H PRN nausea and 07/07/24 tablet vomiting #10 tabs naproxen 500 mg tablet 500 mg PO BID PRN pain #30 t abs 07/18/24 Allergies Allergy/AdvReac Type Severity Reaction Status Date / Time No Known Allergies Allergy Verified 06/26/24 06:12 Review of Systems Review of Systems Systems Reviewed: All systems reviewed, normal except as documented Constitutional Constitutional: Reports system reviewed and no additional complaints, except as documented, Denies fever(s) and Denies headache(s) ENT Ears, Nose, Mouth, and Throat: Denies disequilibrium and Denies headache(s) Cardiovascular Cardiovascular: Reports system reviewed and no additional complaints, except as documented, Denies chest pain and Denies dyspnea Respiratory Respiratory: Reports system reviewed and no additional complaints, except as documented, Denies cough and Denies dyspnea Gastrointestinal Gastrointestinal: Reports system reviewed and no additional complaints, except as documented, Reports as per HPI, Reports abdominal pain, Denies nausea and Denies vomiting Neurologic Neurologic: Reports system reviewed and no additional complaints, except as documented, Denies confusion, Denies disequilibrium and Denies headache(s) Psychiatric Psychiatric: Denies confusion Past Medical History Past Medical History NEUROLOGIC: Negative Neurological Disorders CARDIAC: Negative Cardiac Disorders or Congestive Heart Failure RESPIRATORY: Negative Chronic Obstructive Pulmonary Disease (COPD) GENITOURINARY: Negative Renal Disease ENDOCRINE: Negative Diabetes Mellitus Type 1 or Diabetes Mellitus Type 2 Social History SMOKING STATUS: Current every day smoker ED Exam General Limitations: Present no limitations General appearance: Present alert and in no apparent distress Head Head exam: Present atraumatic Eye Eye exam: Present normal appearance, PERRL and EOMI ENT ENT exam: Present normal exam, normal oropharynx and mucous membranes moist Neck Neck exam: Present normal inspection, full ROM and trachea midline Chest Chest inspection: Present normal inspection and symmetric chest wall rise Respiratory Respiratory exam: Present normal lung sounds bilaterally Cardiovascular Cardiovascular exam: Present regular rate, normal rhythm and normal heart sounds Abdominal Exam Abdominal exam: Present soft and normal bowel sounds Abdominal tenderness: Present RUQ and mild Extremities Exam Extremities exam: Present normal inspection and full ROM Back Exam Back exam: Present normal inspection and full ROM Neurological Exam Neurological exam: Present alert, oriented X3 and CN II-XII intact Psychiatric Psychiatric exam: Present normal affect and normal mood Skin Skin exam: Present warm, dry, intact and normal color Course Quality Measures none Orders Category Date Time Status Ketorolac Inj [Toradol Inj] Med 07/18/24 02:19 Discontinued 60 mg IM X1 ONE Vital Signs Vital signs: Vital Signs Temperature 97.5 F 07/18/24 02:12 Pulse Rate 62 07/18/24 02:12 Respiratory Rate 19 07/18/24 02:12 Blood Pressure 108/71 07/18/24 02:12 Pulse Oximetry (%) 98 07/18/24 02:12 Oxygen Delivery Method Room Air 07/18/24 02:12 O2 at 98% on RA and WNLs Abdominal Pain MDM MDM Narrative MDM Narrative:: 33M with history of anxiety and gallstones presents to ED with 2 months of on/off RUQ pain. Patient has been here multiple times for this with US showing gallstones, but no cholecystitis. Patient has specialist appointment next month. Patient just wants meds and declines diagnostic work. Patient hasn't taken any meds because he recently lost his job and can't afford them. Physical exam reveals mild RUQ tenderness. Patient is afebrile, calm, and alert. Meds given. Patient data External records reviewed:: [facility] previous records Clinical information provided by:: patient Social determinants that could affect healthcare access:: mental health Patient has the following chronic illnesses:: anxiety How is presenting disease/condition affected by chronic disease/condition?: exacerbated by Evaluation data The following diagnostics were reviewed and interpreted by me:: other (specify) (none) Lab and/or radiology exams considered but not ordered:: not ordered Interpretation Summary: n/a Medications / Prescriptions Medications or Prescriptions considered but not ordered:: ordered Medication administrations:: Medication Administration History Discontinued Medications Ketorolac Tromethamine (Ketorolac Inj 60 Mg/2 Ml Vial) 60 mg IM X1 ONE Stop: 07/18/24 02:20 above Consultations Consultation(s) initiated? (list below): No Diagnosis Differential diagnosis abdominal pain: abdominal pain, acute appendicitis, calculus of kidney, constipation, diverticulitis, endometriosis, gastroenteritis, pancreatitis, small bowel obstruction and other (biliary colic) Most likely diagnosis given after review of the tests above:: biliary colic Admission Indicated Admission indicated?: not indicated Admission Request Was there a request for admission?: No Disposition Plan Disposition Plan: Discharge Discharge Attestation Discharge Attestation: The patient and all family members were given an opportunity to ask questions and understood the discharge instructions. Discharge instructions specifically effects, indications for sooner follow up or return to the emergency department, and the expected course of current diagnosis. Patient condition: Stable Discharge Plan Plan Patient Disposition: HOME (Self Care) Disposition Comment: Stable Prescriptions/Referrals Prescriptions/Med Rec: New naproxen 500 mg tablet 500 mg PO BID PRN (Reason: pain) Qty: 30 0RF No Action ibuprofen 600 mg tablet 600 mg PO Q8H PRN (Reason: pain) Qty: 14 0RF meloxicam 7.5 mg tablet 7.5 mg PO QDAY Qty: 10 0RF metoclopramide HCl [Reglan] 10 mg tablet 10 mg PO Q6H PRN (Reason: nausea and vomiting) Qty: 30 0RF hydrocodone-acetaminophen 5-325 mg tablet 1 tab PO BID MDD 10 PRN (Reason: pain) Qty: 10 0RF ibuprofen 600 mg tablet 600 mg PO Q6H Qty: 30 0RF ondansetron 4 mg tablet,disintegrating 4 mg PO Q8H PRN (Reason: nausea and vomiting) Qty: 10 0RF Problem List Clinical Impression: Biliary colic Patient/Caregiver Discharge Instructions Education Materials: ED Gallstones with Biliary Colic Additional Instructions: Please follow-up with PCP within 24-48 hours and return immediately if symptoms worsen. Make sure you're seeing a general surgeon, not a GI specialist. Print Language: Mauritian Stand Alone Forms: Patient Portal Info Letter PA/FAMILY NURSE PRACTITIONER Supervising Physician PA/PAUL Supervising Physician: Dr. Sen
[2024-07-18] MEDS: KETOROLAC INJ 60 MG/2 ML VIAL IM (02:38)
== END 2024-07-18 03:02 | disposition home or self-care (01) ==
LOC: SERX 03:10
PROVIDERS: Emergency Provider Emergency Medicine
DX: K80.70 Calculus of gallbladder and bile duct without cholecystitis without obstruction (principal)
CPT/HCPCS: 96372; 99283; J1885